=== PATIENT | female | born 1950 | race Two or more races ===

== ENCOUNTER → 2024-11-24 | Outpatient (CLI) | payer OTHER, MEDICARE, SELFPAY ==
--- NOTE | 2024-11-24 09:30 | XR_ITS ---
Examination: Esophagram standard Fluoroscopy Upright PA chest Upright soft tissue lateral neck single view Exam date and time: November 24, 2024 0944 hours INDICATIONS: Patient states food gets stuck in the esophagus 3 months TECHNIQUE AND FINDINGS: Upright PA chest epidural thoracic pain the Normal heart size 4 mm pulmonary nodule in the left midlung No pneumonia Moderate degenerative disc disease C6-C7 on the soft tissue lateral neck film single view Patient swallowed thin barium with 15 spot films of the esophagus obtained Primary peristaltic esophageal waves noted Possible ulceration in the mid to distal esophagus, image 6 Moderate intermittent gastroesophageal reflux IMPRESSION: Moderate degenerative disc disease C6-C7 Possible subtle ulceration in the mid to distal esophagus, recommend endoscopy follow-up Moderate intermittent gastroesophageal reflux 15 spot fluoroscopic films, fluoroscopy 0.16 minutes
== END | disposition home or self-care (01) ==
PROVIDERS: Referring Provider Internal Medicine; Visit Provider Internal Medicine
DX: M50.323 Other cervical disc degeneration at C6-C7 level (principal); K21.9 Gastro-esophageal reflux disease without esophagitis
CPT/HCPCS: 74220